=== PATIENT | male | born 1945 | race Caucasian/White ===

== ENCOUNTER 2021-06-10 17:02 | Emergency (ER) | payer OTHER ==
[~2021-06-10] VITALS: Ht 172.7 cm; Wt 116.1 kg
[2021-06-10 17:28] VITALS: BP_SYST 119
[2021-06-10 19:05] LABS: BASOPHILS # (AUTO) 0.1 K/uL (0.0-0.2); BASOPHILS % (AUTO) 0.9 % (0.0-2.0); EOSINOPHILS # (AUTO) 0.1 K/uL (0.0-0.4); EOSINOPHILS % (AUTO) 0.7 % (0.0-4.0); HEMATOCRIT 43.5 % (36-54); HEMOGLOBIN 14.9 g/dL (14.0-18.0); LYMPHOCYTES # (AUTO) 3.5 K/uL (1.0-5.5); LYMPHOCYTES % (AUTO) 30.7 % (20.5-51.5); MEAN CORPUSCULAR HEMOGLOBIN 33 pg (27-31); MEAN CORPUSCULAR HGB CONC 34 % (32-36); MEAN CORPUSCULAR VOLUME 96 fL (79.0-98.0); MONOCYTES # (AUTO) 1.1 K/uL (0.0-1.0); MONOCYTES % (AUTO) 9.2 % (1.7-9.3); NEUTROPHILS # (AUTO) 6.7 K/uL (1.8-7.7); NEUTROPHILS % (AUTO) 58.5 % (40.0-70.0); PLATELET COUNT (AUTO) 240 K/uL (130-430); RED BLOOD CELL COUNT(AUTO) 4.56 MIL/uL (4.2-6.2); RED CELL DISTRIBUTION WIDTH 13.7 % (9.0-15.0); WHITE BLOOD COUNT (AUTO) 11.4 K/uL (4.8-10.8)
[2021-06-10 19:17] LABS: ANION GAP 9 (5-15); CALCIUM 9.9 mg/dL (8.4-11.0); CHLORIDE 100 mmol/L (98-107); CREATININE 2.15 mg/dL (0.55-1.30); GLUCOSE 238 mg/dL (70-99); POTASSIUM 4.3 mmol/L (3.5-5.1); SODIUM SERUM 139 mmol/L (136-145); UREA NITROGEN, BLOOD 34 mg/dL (8-21)
[2021-06-10 19:23] LABS: ALANINE AMINOTRANSFERASE 19 U/L (12-78); ASPARTATE AMINOTRANSFERASE 14 U/L (10-37); TOTAL BILIRUBIN 0.6 mg/dL (0.0-1.0)
[2021-06-10 19:29] LABS: INR 0.9 (0.80-1.20)
--- NOTE | 2021-06-10 20:06 | NUR ---
Patient to ER bed 02 to gown for evaluation. Side rails up. Report given to BERNADETTE Trevino
--- NOTE | 2021-06-10 20:25 | NUR ---
Assumed total care of patient. Patient AAO x4 from home c/o left elbow pain, redness and swelling since wednesday. Patient has limited mobility of left elbow. Patient states he took 4 aspirin for pain earlier today. Patient awaiting on results. Patient on cardiac rehab nurse, VSS, breathing even and unlabored, no signs of acute distress noted. Will continue to monitor.
--- NOTE | 2021-06-10 21:06 | NUR ---
Patient given pillow to rest underneath left elbow.
--- NOTE | 2021-06-10 21:40 | NUR ---
ER Dr. Fuentes at bedside examining patient.
[2021-06-10] MEDS ORDERED: INDO-12 PO (22:25)
[2021-06-10] MEDS ORDERED: CLE150 PO (22:27)
[2021-06-10] MEDS ORDERED: INDOMETHACIN 25 MG CAPSULE(INDOCIN) PO ONE (22:30)
[2021-06-10 22:50] VITALS: BP_SYST 126
--- NOTE | 2021-06-10 22:50 | NUR ---
Patient given written and verbal discharge instructions and verbalizes understanding. ER MD discussed with patient the results and treatment provided. Patient in stable condition. ID arm band removed. Rx of clindamycin and indocin given. Patient educated on pain management and to follow up with PMD. Pain Scale 5/10. Opportunity for questions provided and answered. Medication side effect fact sheet provided.
== END 2021-06-10 22:50 | disposition home or self-care (01) ==
LOC: SED 17:02
DX: M70.22 Olecranon bursitis, left elbow (principal); I10 Essential (primary) hypertension; E11.9 Type 2 diabetes mellitus without complications; Z88.0 Allergy status to penicillin; Z88.2 Allergy status to sulfonamides; Y93.89 Activity, other specified
CPT/HCPCS: 36415; 80053; 85025; 85379; 85610-TC; 86140; 93971; 99285